=== PATIENT | male | born 1950 | race Caucasian/White ===

== ENCOUNTER 2019-11-20 11:44 | Emergency (ER) | payer MEDICARE, BC ==
[2019-11-20] MEDS ORDERED: Sodium Chloride 0.9% 10 ML Syringe FLUSH PRN (11:50)
--- NOTE | 2019-11-20 12:56 | CR ---
Chest: Portable view of the chest was obtained. Comparison: No prior chest imaging is available. Heart size and mediastinum are normal. Lungs are clear. Minimal scoliosis is noted. Impression: 1. Nothing acute is appreciated on portable chest x-ray. Diagnostic code #2 This report was dictated in MDT
--- NOTE | 2019-11-20 13:04 | EDM.PDOC ---
ED HPI GENERAL MEDICAL PROBLEM - General Chief Complaint: General Stated Complaint: [facility] Time Seen by Provider: 11/20/19 11:46 Source of Information: Reports: Patient, EMS, Provider History Limitations: Reports: No Limitations - History of Present Illness INITIAL COMMENTS - FREE TEXT/NARRATIVE: The patient presents by [facility] for a syncopal episode. He was at the clinic in [place] being evaluated. He went from the exam table to the chair and passed out for about a minute. He had no seizure activity. He had some chest tightness at that time. He has none now. He went to the clinic for generalized weakness. He had a fever a couple days ago. He has no real medical history. He has not seen a doctor in years. He has no cough, congestion, runny nose, shortness of breath, abdominal pain, nausea or vomiting. He does not smoke. Onset: Sudden Duration: Minutes: Severity: Moderate Improves with: Reports: None Worsens with: Reports: None Context: Reports: Other (He just had a medical exam) Associated Symptoms: Reports: Chest Pain. Denies: Cough, Fever/Chills, Headaches, Nausea/Vomiting, Shortness of Breath - Related Data Allergies Allergy/AdvReac Type Severity Reaction Status Date / Time No Known Allergies Allergy Verified 11/20/19 11:57 Home Meds: Home Meds Diltiazem HCl [Cardizem LA] 60 mg PO DAILY #30 tab.sr.24h 11/20/19 [Rx] Social & Family History - Tobacco Use Smoking Status *Q: Never Smoker - Caffeine Use Caffeine Use: Reports: Coffee - Recreational Drug Use Recreational Drug Use: No ED ROS GENERAL - Review of Systems Review Of Systems: See Below Constitutional: Reports: Fever, Weakness. Denies: Fatigue HEENT: Reports: No Symptoms Respiratory: Reports: No Symptoms Cardiovascular: Reports: Syncope. Denies: Chest Pain Endocrine: Reports: No Symptoms GI/Abdominal: Reports: No Symptoms : Reports: No Symptoms Musculoskeletal: Reports: No Symptoms ED EXAM, GENERAL - Physical Exam Exam: See Below Exam Limited By: No Limitations General Appearance: Alert, No Apparent Distress Ears: Normal External Exam Nose: Normal Inspection Head: Atraumatic, Normocephalic Neck: Normal Inspection Respiratory/Chest: No Respiratory Distress, Lungs Clear, Normal Breath Sounds Cardiovascular: Regular Rate, Rhythm, No Edema, No Murmur GI/Abdominal: Soft, Non-Tender, No Organomegaly, No Mass Back Exam: Normal Inspection Extremities: Normal Inspection EKG INTERPRETATION EKG Date: 11/20/19 Time: 13:21 Rhythm: NSR Rate (Beats/Min): 73 [place]: Normal P-Wave: Present QRS: Normal ST-T: Normal QT: Normal Course - Vital Signs Last Recorded V/S: Last Vital Signs Temp 96.9 F 11/20/19 11:52 Pulse 71 11/20/19 11:52 Resp 18 11/20/19 11:52 BP 119/105 H 11/20/19 11:52 Pulse Ox 100 11/20/19 11:52 - Orders/Labs/Meds Orders: Active Orders 24 hr Category Date Time Status Cardiac Monitoring [RC] . DIRECTED Care 11/20/19 11:50 Active EKG Documentation Completion [RC] STAT Care 11/20/19 11:51 Active Peripheral IV Care [RC] . DIRECTED Care 11/20/19 11:51 Active CORONAVIRUS COVID-19 PCR PHL Stat Lab 11/20/19 11:51 Ordered T4 FREE [CHEM] Stat Lab 11/20/19 13:00 Received Diltiazem [Cardizem] 100 mg Med 11/20/19 13:30 Active Sodium Chloride 0.9% [Normal Saline] 100 ml IV TITRATE Sodium Chloride 0.9% [Saline Flush] Med 11/20/19 11:50 Active 10 ml FLUSH ASDIRECTED PRN Peripheral IV Insertion Adult [OM.PC] Stat Oth 11/20/19 11:50 Ordered Medication Orders Diltiazem HCl 100 mg/ Sodium (Chloride) 100 mls @ 5 mls/hr IV TITRATE RIGO; Protocol Last Admin: 11/20/19 13:35 Dose: 5 mg/hr, 5 mls/hr Sodium Chloride (Saline Flush) 10 ml FLUSH ASDIRECTED PRN PRN Reason: Keep Vein Open Last Admin: 11/20/19 12:00 Dose: 10 ml Labs: Laboratory Tests 11/20/19 11/20/19 11/20/19 Range/Units 13:00 13:00 13:00 WBC 6.27 (4.23-9.07) K/mm3 RBC 4.94 (4.63-6.08) M/mm3 Hgb 15.0 (13.7-17.5) gm/dl Hct 44.8 (40.1-51.0) % MCV 90.7 (79.0-92.2) fl MCH 30.4 (25.7-32.2) pg MCHC 33.5 (32.2-35.5) g/dl RDW Std Deviation 39.8 (35.1-43.9) fL Plt Count 154 L (163-337) K/mm3 MPV 9.7 (9.4-12.3) fl Neut % (Auto) 78.6 H (34.0-67.9) % Lymph % (Auto) 11.6 L (21.8-53.1) % [place] % (Auto) 8.8 (5.3-12.2) % Eos % (Auto) 0.6 L (0.8-7.0) Baso % (Auto) 0.2 (0.1-1.2) % Neut # (Auto) 4.93 (1.78-5.38) K/mm3 Lymph # (Auto) 0.73 L (1.32-3.57) K/mm3 [place] # (Auto) 0.55 (0.30-0.82) K/mm3 Eos # (Auto) 0.04 (0.04-0.54) K/mm3 Baso # (Auto) 0.01 (0.01-0.08) K/mm3 Sodium 138 (136-145) mEq/L Potassium 4.0 (3.5-5.1) mEq/L Chloride 104 (98-107) mEq/L Carbon Dioxide 24 (21-32) mEq/L Anion Gap 14.0 (5-15) BUN 20 H (7-18) mg/dL Creatinine 1.1 (0.7-1.3) mg/dL Est Cr Clr Drug Dosing 63.38 mL/min Estimated GFR (MDRD) > 60 (>60) mL/min BUN/Creatinine Ratio 18.2 H (14-18) Glucose 118 H (80-115) mg/dL Calcium 8.8 (8.5-10.1) mg/dL Total Bilirubin 0.3 (0.2-1.0) mg/dL AST 16 (15-37) U/L ALT 15 L (16-63) U/L Alkaline Phosphatase 68 (46-116) U/L Troponin I < 0.017 (0.00-0.056) ng/mL C-Reactive Protein 0.7 (<1.0) mg/dL Total Protein 7.0 (6.4-8.2) g/dl Albumin 3.6 (3.4-5.0) g/dl Globulin 3.4 gm/dL Albumin/Globulin Ratio 1.1 (1-2) TSH 3rd Generation 5.094 H (0.358-3.74) uIU/mL Meds: Medications Generic Name Dose Route Start Last Admin Trade Name Freq PRN Reason Stop Dose Admin Diltiazem HCl 100 mg/ Sodium 100 mls @ 5 mls/hr 11/20/19 13:30 11/20/19 13:35 Chloride IV 5 mg/hr TITRATE RIGO 5 mls/hr Administration Protocol 5 MG/HR Sodium Chloride 10 ml 11/20/19 11:50 11/20/19 12:00 Saline Flush FLUSH 10 ml ASDIRECTED PRN Administration Keep Vein Open Discontinued Medications Generic Name Dose Route Start Last Admin Trade Name Freq PRN Reason Stop Dose Admin Diltiazem HCl 10 mg 11/20/19 13:27 11/20/19 13:34 Cardizem IVPUSH 11/20/19 13:28 10 mg ONETIME ONE Administration - Re-Assessments/Exams Free Text/Narrative Re-Assessment/Exam: 11/20/19 14:51 I ordered an IV saline lock, EKG, and labs. His EKG shows a NSR with no acute changes. His CBC and CMP look good. His troponin is negative. His TSH is elevated at 5.094. I have ordered a free T4. He had a run of tachycardia that we could not catch on EKG. It looked like A-fib in the 140s. He said he could feel that when it came on. It was gone right when we were getting the second EKG. I wanted to admit him to the hospital. I will get him on a holter monitor and start him on cardizem. He will follow up with Obdulia Huynh at the [facility]. I called to let her know the plan. Departure - Departure Time of Disposition: 15:00 Disposition: Home, Self-Care 01 Condition: Good Clinical Impression: Syncope Qualifiers: Syncope type: unspecified Qualified Code(s): R55 - Syncope and collapse Atrial fibrillation Qualifiers: Atrial fibrillation type: paroxysmal Qualified Code(s): I48.0 - Paroxysmal atrial fibrillation - Discharge Information *PRESCRIPTION DRUG MONITORING PROGRAM REVIEWED*: Not Applicable *COPY OF PRESCRIPTION DRUG MONITORING REPORT IN PATIENT RADHA: Not Applicable Prescriptions: Diltiazem HCl [Cardizem LA] 60 mg PO DAILY #30 tab.sr.24h Referrals: Obdulia Huynh NP [Primary Care Provider] - 1 Week Forms: ED Department Discharge Additional Instructions: Wear the Holter Monitor for 48 hours. Take the cardizem 1/2 pill or 60mg daily. Follow up with Obdulia Huynh within 1 week. Please return if you are worse. Sepsis Event Note - Evaluation Sepsis Screening Result: No Definite Risk - Focused Exam Vital Signs: Vital Signs Temp Pulse Resp BP Pulse Ox 11/20/19 11:52 96.9 F 71 18 119/105 H 100 Date Exam was Performed: 11/20/19 Time Exam was Performed: 14:45 - My Orders Last 24 Hours: My Active Orders 11/20/19 11:50 Cardiac Monitoring [RC] . DIRECTED Sodium Chloride 0.9% [Saline Flush] 10 ml FLUSH ASDIRECTED PRN Peripheral IV Insertion Adult [OM.PC] Stat 11/20/19 11:51 EKG Documentation Completion [RC] STAT Peripheral IV Care [RC] . DIRECTED CORONAVIRUS COVID-19 PCR PHL Stat 11/20/19 13:00 T4 FREE [CHEM] Stat 11/20/19 13:30 Diltiazem [Cardizem] 100 mg Sodium Chloride 0.9% [Normal Saline] 100 ml IV TITRATE - Assessment/Plan Last 24 Hours: My Active Orders 11/20/19 11:50 Cardiac Monitoring [RC] . DIRECTED Sodium Chloride 0.9% [Saline Flush] 10 ml FLUSH ASDIRECTED PRN Peripheral IV Insertion Adult [OM.PC] Stat 11/20/19 11:51 EKG Documentation Completion [RC] STAT Peripheral IV Care [RC] . DIRECTED CORONAVIRUS COVID-19 PCR PHL Stat 11/20/19 13:00 T4 FREE [CHEM] Stat 11/20/19 13:30 Diltiazem [Cardizem] 100 mg Sodium Chloride 0.9% [Normal Saline] 100 ml IV TITRATE
[2019-11-20] MEDS ORDERED: Diltiazem 50 MG/10 ML SDV IVPUSH ONE (13:27)
[2019-11-20] MEDS ORDERED: Diltiazem 100 MG in Sodium Chloride 0.9% 100 ML IV SCH (13:30)
== END 2019-11-20 15:23 | disposition home or self-care (01) ==
LOC: JD.ED 11:44
DX: I48.0 Paroxysmal atrial fibrillation (principal); R55 Syncope and collapse; Z79.899 Other long term (current) drug therapy
CPT/HCPCS: 36415; 71045; 80053; 84439; 84443; 84484; 85025; 86140; 93005; 93225; 93226; 96365; 96366; 99285; J3490; J7050